=== PATIENT | female | born 2000 | race American Indian/Alaskan Native ===

== ENCOUNTER 2019-04-30 17:34 | Emergency (ER) | payer SELFPAY ==
[2019-04-30 18:06] VITALS: BP 137/85
--- NOTE | 2019-04-30 18:44 | Emergency Department Report ---
ED Anxiety HPI - General Chief Complaint: Anxiety Stated Complaint: CHEST PAIN SOB Time Seen by Provider: 04/30/19 18:39 Source: patient Mode of arrival: Ambulatory - History of Present Illness Initial Comments: This is a 18-year-old female nontoxic, well in appearance with no signs of distress presents to the ED for acute on chronic intermittent anxiety. Patient denies any anxiety now. Stated has been working and just started school and gets anxious. Denies any symptoms right now. Denies any SI, HI, or depression. Patient stated she is asymptotic. Denies any penile discharge, testicular pain, or swelling. Patient denies any urinary symptoms. Patient denies any fever, chills, headache, nausea, vomiting, chest pain or shortness of breathe. denies any other symptoms or complaints. Denies any allergies or PMH. MD Complaint: anxiety Place: home Previous History of Same: Yes Severity: mild Quality: improving, similar to prior episodes Provoking factors: emotional stress, work/job stress Improves With: nothing Worsens With: nothing Associated symptoms: denies other symptoms. denies: chest pain, shortness of breath, palpitations, diaphoresis, confusion, cough, fever/chills, headaches, anorexia, malaise, nausea/vomiting, rash, seizure, syncope, weakness - Related Data Allergies/Adverse Reactions: Allergies Allergy/AdvReac Type Severity Reaction Status Date / Time No Known Allergies Allergy Unverified 04/30/19 17:40 ED Review of Systems ROS: Stated complaint: CHEST PAIN SOB Other details as noted in HPI Constitutional: denies: chills, fever Eyes: denies: eye pain, eye discharge, vision change ENT: denies: ear pain, throat pain Respiratory: denies: cough, shortness of breath, wheezing Cardiovascular: denies: chest pain, palpitations Endocrine: no symptoms reported Gastrointestinal: denies: abdominal pain, nausea, diarrhea Genitourinary: denies: urgency, dysuria, discharge Musculoskeletal: denies: back pain, joint swelling, arthralgia Skin: denies: rash, lesions Neurological: denies: headache, weakness, paresthesias Psychiatric: denies: anxiety, depression Hematological/Lymphatic: denies: easy bleeding, easy bruising ED Past Medical Hx - Past Medical History Previous Medical History?: No - Surgical History Past Surgical History?: No - Social History Smoking Status: Never Smoker Substance Use Type: None ED Physical Exam - General Limitations: No Limitations General appearance: alert, in no apparent distress - Head Head exam: Present: atraumatic, normocephalic - Neck Neck exam: Present: normal inspection, full ROM. Absent: tenderness, meningismus, lymphadenopathy - Respiratory Respiratory exam: Present: normal lung sounds bilaterally. Absent: respiratory distress, wheezes, rales, rhonchi, stridor, chest wall tenderness, accessory muscle use, decreased breath sounds, prolonged expiratory - Cardiovascular Cardiovascular Exam: Present: regular rate, normal rhythm, normal heart sounds. Absent: irregular rhythm, systolic murmur, diastolic murmur, rubs, gallop - Extremities Exam Extremities exam: Present: full ROM - Back Exam Back exam: Present: full ROM - Neurological Exam Neurological exam: Present: alert, oriented X3, normal gait - Psychiatric Psychiatric exam: Present: normal affect, normal mood. Absent: depressed, agitated, anxious, flat affect, manic, homicidal ideation, suicidal ideation - Skin Skin exam: Present: warm, dry, intact, normal color. Absent: rash, cyanosis, diaphoretic, erythema, urticaria, vesicles, petechiae, pallor, abrasion, ecchymosis ED Course Vital Signs 04/30/19 18:05 Temperature 98.3 F Pulse Rate 94 H Respiratory 18 Rate Blood Pressure 137/85 O2 Sat by Pulse 99 Oximetry - Reevaluation(s) Reevaluation #1: 04/30/19 18:43 Patient is speaking in full sentences with no signs of distress noted. ED Medical Decision Making - Medical Decision Making 18-year-old female that presents with anxiety but has resolved now. Denies any symptoms. Patient is stable and was examined by me. Patient was instructed to Follow-up with a primary care doctor in 3-5 days or if symptoms worsen and continue return to emergency room as soon as possible. At time of discharge, the patient does not seem toxic or ill in appearance. No acute signs of distress noted. Patient agrees to discharge treatment plan of care. No further questions noted by the patient. Critical care attestation.: If time is entered above; I have spent that time in minutes in the direct care of this critically ill patient, excluding procedure time. ED Disposition Clinical Impression: Anxiety Disposition: Z-07 MED SCREENING EXAM-LEFT Is pt being admited?: No Does the pt Need Aspirin: No Condition: Stable Instructions: Anxiety (ED) Additional Instructions: Follow-up with a primary care doctor in 3-5 days or if symptoms worsen and continue return to emergency room as soon as possible. Referrals: PRIMARY CARE, [Referring] - 3-5 Days MARY BETH VAZQUEZ MD [Staff Physician] - 3-5 Days [facility] [Outside] - 3-5 Days
== END 2019-04-30 19:50 | disposition left against medical advice (07) ==
LOC: ED 17:34
DX: F41.9 Anxiety disorder, unspecified (principal)
CPT/HCPCS: 93005; 93010